=== PATIENT | male | born 1960 | race Caucasian/White ===

== ENCOUNTER → 2023-02-28 12:37 | Outpatient (CLI) | payer OTHER, SELFPAY ==
--- NOTE | ~2023-02-28 | XR_ITS ---
XR hand BI arthritis min 3V DATE: 02/28/2023 13:14 INDICATION: Primary osteoarthritis TECHNIQUE: 4 views of each hand COMPARISON: None FINDINGS: Right hand: Old fracture deformity at the base of the proximal phalanx of the third digit. Mild osteoarthritis at the first metacarpophalangeal joint, proximal interphalangeal joint of the sec ond digit and to a greater extent the first carpometacarpal joint. No erosive change is noted. No fracture, dislocation, periosteal reaction or bone destruction or chondrocalcinosis. Left hand: There is prominent osteophytic change at the first carpometacarpal joint. There is mild osteoarthritis at the second and third and fourth metacarpophalangeal joints. There is spurring at the radial ulnar joint. No fracture, dislocation, periosteal reaction or bone destruction, erosive change or chondrocalcinosi s. IMPRESSION: Polyarticular osteoarthritis of both hands, greatest at the first carpometacarpal joint Reviewed, dictated and finalized at location A. IMPRESSION: Polyarticular osteoarthritis of both hands, greatest at the first c arpometacarpal joint
== END ==
PROVIDERS: PCP Physician Assistant; Visit Provider Physician Assistant
DX: M19.042 Primary osteoarthritis, left hand (principal); M19.041 Primary osteoarthritis, right hand
CPT/HCPCS: 73130

== ENCOUNTER → 2023-04-28 12:35 | Outpatient (CLI) | payer OTHER, SELFPAY ==
--- NOTE | ~2023-04-28 | XR_ITS ---
Left Knee Technique: AP, lateral, and sunrise views were obtained. Clinical History: Pain Findings: No fracture or dislocation is seen. Osseous alignment is anatomic. Joint spaces are preserv ed without degenerative or erosive change. Soft tissues are unremarkable. No joint effusion is seen. Impression: Unremarkable left knee radiographs. Reviewed, dictated and finalized at location . [employer] PATHOLOGY ASSISTANT Impression: Unremarkable left knee radiographs.
== END ==
PROVIDERS: PCP Family Medicine; Visit Provider Family Medicine
DX: M25.562 Pain in left knee (principal)
CPT/HCPCS: 73562

== ENCOUNTER 2023-05-08 06:33 | Outpatient (CLI) | payer OTHER, SELFPAY ==
--- NOTE | ~2023-05-08 | MR_ITS ---
MRI of the left knee Clinical history: Pain Technique: Coronal proton density and proton density-weighted images, sagittal proton-density and T2 fat-sat images, and axial proton-density fat-saturated images were acquired. Findings: Anterior and posterior cruciate ligaments are intact. Medial collateral ligament and the la teral collateral again, as are intact. Popliteus tendon is intact. There is prominent radial tear at the posterior root of the medial meniscus, with probable superimpos ed horizontal tear of the posterior horn. No lateral meniscal tear seen. Articular cartilage in the medial lateral compartments is well preserved. There is high-grade chondra l malacia along the medial patellar facet. Femoral trochlear cartilage is intact. Extensor mechanism is intact. No significant joint effusion or Mclean's cyst. Impression: Radial tear at the posterior root of the medial meniscus with probable superimposed horizontal tear o f the posterior horn. High-grade chondromalacia the medial patellar facet. Reviewed, dictated and finalized at [facility]. [employer] Impression: Radial tear at the posterior root of the medial meniscus with probable superimp osed horizontal tear of the posterior horn. High-grade chondromalacia the medial patellar facet.
== END 2023-05-08 06:34 | disposition home or self-care (01) ==
PROVIDERS: PCP Family Medicine; Visit Provider Family Medicine
DX: S83.242A Other tear of medial meniscus, current injury, left knee, initial encounter (principal); X58.XXXA Exposure to other specified factors, initial encounter
CPT/HCPCS: 73721